=== PATIENT | female | born 1965 | race Caucasian/White ===

== ENCOUNTER 2018-10-28 11:36 | Emergency (ER) | payer OTHER ==
[~2018-10-28] VITALS: Ht 165.1 cm; Wt 65.8 kg
[~2018-10-28 11:36] MED LIST: AMBIEN5 MG PO; BUPROPION XL150 MG PO; HYDROCHLOROTH12.5 M1 PO; K-TAB ER20 MEQ PO; MONO-LINYAH1 EACH PO
--- OUTSIDE RECORDS SUMMARY | 2018-10-28 11:38 | XMS ---
PreManage Notification: MARYBETH JOSHI [employer] Events No recent Security Events currently on file CRITERIA MET - PDMP CARE PROVIDERS PENNY LEWIS [facility] Current PHONE: Unknown [place] has no Care Guidelines for this patient. E[place]re[place] VISIT COUNT (12 MO.) 1 TRICE Santos TOTAL 1 NOTE: Visits indicate total known visits. ED/UCC VISIT TRACKING (12 MO.) 10/28/2018 11:[address] [facility] TYPE: Emergency COMPLAINT: - WEAKNESS,CHEST HEAVINESS,FATIGUE INPATIENT VISIT TRACKING (12 MO.) No inpatient visits to display in this time frame [email or web address]
[2018-10-28] MEDS ORDERED: ESZOPICLONE1 MG PO (11:48)
[2018-10-28] MEDS ORDERED: FLONASE ALLERG9.9 ML NAS (11:49)
[2018-10-28] MEDS ORDERED: OMEPRAZOLE20 MG PO (11:49)
[2018-10-28] MEDS ORDERED: VITAMIN D325 GM MISC (11:49)
--- NOTE | 2018-10-29 17:26 | EKG ---
[facility] [address] [address] [address] [place], [place] [address] Signed Normal sinus rhythm Minimal voltage criteria for LVH, may be normal variant Borderline ECG When compared with ECG of 17-SEP-2016 17:08, No significant change was found Confirmed by ELZBIETA PAYNE DO ([id number]) on 10/29/2018 5:26:02 PM Electronically Signed By: ELZBIETA PAYNE DO 10/29/18 1726 PATIENT NAME: MARYBETH JOSHI Electrocardiogram DATE OF : 61 PHYSICIAN: ELZBIETA PAYNE DO REPORT #: [id number] REPORT IS CONFIDENTIAL AND NOT TO BE RELEASED WITHOUT AUTHORIZATION
== END 2018-10-28 14:06 | disposition home or self-care (01) ==
LOC: ED 11:36
DX: B34.9 Viral infection, unspecified (principal); I10 Essential (primary) hypertension; Z88.2 Allergy status to sulfonamides; Z79.899 Other long term (current) drug therapy
CPT/HCPCS: 71046; 80053; 81001; 84484; 85025; 93005; 93010; 99285-25